=== PATIENT | female | born 1950 | race Caucasian/White ===

== ENCOUNTER → 2016-10-28 | Outpatient (CLI) | payer MEDICARE ==
--- NOTE | 2016-10-28 10:56 | PCVCIMAG ---
EXAM: BILATERAL RENAL ULTRASOUND AND BILATERAL RENAL DUPLEX INDICATION: Hypertension FINDINGS: Right kidney: Length measures 12.1 cm. No hydronephrosis or extensive renal scarring. Right renal duplex: Adequate technical quality. No sonographic evidence of renal artery stenosis. The aortic to renal artery ratio is 2.3. The renal vein is patent. Left kidney: Length measures 12.8 cm. No hydronephrosis or extensive renal scarring. Left renal duplex: Adequate technical quality. No sonographic evidence of renal artery stenosis. The aortic to renal artery ratio is 2.2. The renal vein is patent. Bladder: No obvious abnormalities. AORTA: Suprarenal aorta measures maximum diameter of 2.6 cm. There is a fusiform infrarenal aortic aneurysm. The infrarenal aorta measures maximum diameter of 2.8 x 3.6 cm. No aortic stenosis. IMPRESSION: No significant renal artery stenosis. No hydronephrosis bilaterally. 3.6 cm infrarenal abdominal aortic aneurysm. LOC:[place] [id number]
--- NOTE | 2016-10-28 12:57 | PCVCIMAG ---
APPROVED REPORT Study performed: 10/28/2016 12:21:17 EXAM: Comprehensive 2D, Doppler, and color-flow Echocardiogram Patient Location: Echo lab Status: routine BSA: 2.03 HR: 64 bpmBP: 140/80 mmHg Rhythm: NSR Other Information Study Quality: Adequate Indications CAD S/P CABG, Pulmonary Embolism 2D Dimensions LVEF(%): 53.00 (>50%) IVSd: 11.81 (7-11mm) LVDd: 46.70 mm PWd: 9.94 (7-11mm) LVDs: 33.99 (25-40mm) Left Atrium: 42.80 (27-40mm) Aortic Root: 29.83 mm LV Single Plane 4CH: 54.79 % LV Single Plane 2CH: 57.47 %Gallego's LVEF: 56.13 % Biplane EF: 56.1 % Volumes Left Atrial Volume (Systole) Single Plane 4CH: 56.09 mLSingle Plane 2CH: 54.52 mL LA ESV Index: 29.00 mL/m2 Tricuspid Valve TR Peak Jack.: 2.36 m/s TR Peak Gr.: 22.35 mmHg Left Ventricle The left ventricle is normal size. There is normal LV segmental wall motion. There is normal left ventricular wall thickness. Left ventricular systolic function is normal. The left ventricular ejection fraction is within the normal range. LVEF is 55%. The left ventricular diastolic function is normal. Right Ventricle The right ventricle is normal size. The right ventricular systolic function is normal. Normal right sided volume and pressures. Atria The left atrium size is normal. The right atrium size is normal. Aortic Valve The aortic valve is normal in structure. No aortic regurgitation is present. There is no aortic valvular stenosis. Mitral Valve The mitral valve is normal in structure. There is no mitral valve regurgitation noted. No evidence of mitral valve stenosis. Tricuspid Valve The tricuspid valve is normal in structure. Trivial tricuspid valve regurgitation noted with PAP of 29 mmHg. Pulmonic Valve The pulmonary valve is normal in structure. There is no pulmonic valvular regurgitation. Great Vessels The aortic root is normal in size. IVC is normal in size and collapses with >50% inspiration Pericardium There is no pericardial effusion. <Conclusion> The left ventricle is normal size. LVEF is 55%. The left ventricular diastolic function is normal. The right ventricle is normal size. The left atrium size is normal. There is no aortic valvular stenosis. There is no mitral valve regurgitation noted. Trivial tricuspid valve regurgitation noted with PAP of 29 mmHg. There is no pericardial effusion.
== END | disposition home or self-care (01) ==
LOC: PCVCIMAG 09:58
PROVIDERS: ATTEND Internal Medicine Cardiovascular Disease
DX: I70.1 Atherosclerosis of renal artery (principal); I45.10 Unspecified right bundle-branch block; I10 Essential (primary) hypertension; I73.9 Peripheral vascular disease, unspecified; E11.9 Type 2 diabetes mellitus without complications; I25.10 Atherosclerotic heart disease of native coronary artery without angina pectoris; I26.99 Other pulmonary embolism without acute cor pulmonale; I07.1 Rheumatic tricuspid insufficiency; I71.4 Abdominal aortic aneurysm, without rupture; F17.200 Nicotine dependence, unspecified, uncomplicated; J44.9 Chronic obstructive pulmonary disease, unspecified; Z90.49 Acquired absence of other specified parts of digestive tract; Z95.1 Presence of aortocoronary bypass graft; Z90.710 Acquired absence of both cervix and uterus; Z79.82 Long term (current) use of aspirin; Z88.0 Allergy status to penicillin; Z79.01 Long term (current) use of anticoagulants; Z88.2 Allergy status to sulfonamides
CPT/HCPCS: 76770; 80061; 93005; 93308; 93975; G0463

== ENCOUNTER → 2017-02-15 | Outpatient (CLI) | payer MEDICARE | END | disposition home or self-care (01) | LOC: PCVCCLINIC 12:43 | DX: I25.10 Atherosclerotic heart disease of native coronary artery without angina pectoris (principal); I10 Essential (primary) hypertension; I70.1 Atherosclerosis of renal artery; I77.9 Disorder of arteries and arterioles, unspecified; I73.9 Peripheral vascular disease, unspecified; E78.00 Pure hypercholesterolemia, unspecified; E11.9 Type 2 diabetes mellitus without complications; R94.31 Abnormal electrocardiogram [ECG] [EKG]; I45.10 Unspecified right bundle-branch block; Z87.891 Personal history of nicotine dependence; Z79.82 Long term (current) use of aspirin; Z79.899 Other long term (current) drug therapy | CPT/HCPCS: 80061; 93005; G0463 ==

== ENCOUNTER → 2017-09-20 | Outpatient (CLI) | payer OTHER | END | disposition home or self-care (01) | LOC: PCVCCLINIC 11:36 | PROVIDERS: ATTEND Internal Medicine Cardiovascular Disease | DX: I25.10 Atherosclerotic heart disease of native coronary artery without angina pectoris (principal); E11.9 Type 2 diabetes mellitus without complications; I45.10 Unspecified right bundle-branch block; I73.9 Peripheral vascular disease, unspecified; E78.00 Pure hypercholesterolemia, unspecified; I10 Essential (primary) hypertension; I77.9 Disorder of arteries and arterioles, unspecified; R06.02 Shortness of breath; I71.4 Abdominal aortic aneurysm, without rupture; Z88.0 Allergy status to penicillin; Z88.8 Allergy status to other drugs, medicaments and biological substances; Z95.1 Presence of aortocoronary bypass graft; Z87.891 Personal history of nicotine dependence; Z79.82 Long term (current) use of aspirin; Z79.899 Other long term (current) drug therapy | CPT/HCPCS: 93005; G0463 ==

== ENCOUNTER → 2017-10-06 | Outpatient (CLI) | payer OTHER ==
[~2017-10-06] MED LIST: REGADENOSON 0.4 MG/5 ML DISP.SYRIN. IV ONE
--- NOTE | 2017-10-06 11:17 | PCVCIMAG ---
EXAM: BILATERAL CAROTID DUPLEX INDICATION: Carotid Occlusive Disease. FINDINGS: Doppler Measurements (centimeters per second): RIGHT: Peak CCA-79, Peak ECA-211, Diastolic ICA-59, Peak ICA-187, ICA/CCA Ratio-2.4. LEFT: Peak CCA-47, Peak ECA-145, Diastolic ICA-44, Peak ICA-139, ICA/CCA Ratio-2.9. RIGHT CAROTID: The carotid bulb has moderately severe plaque. The proximal internal carotid artery shows 60-70% stenosis. The common carotid artery shows no significant stenosis. The external carotid artery shows 60% stenosis. LEFT CAROTID: The carotid bulb has mild plaque. The proximal internal carotid artery shows <40% stenosis. The common carotid artery shows no significant stenosis. The external carotid artery shows 40% stenosis. Antegrade flow in both vertebral arteries. IMPRESSION: 60-70% stenosis of the right internal carotid artery with moderately severe plaque. <40% stenosis of the left internal carotid artery with mild plaque. No change since March 2016 study. LOC:[id number]
--- NOTE | 2017-10-06 12:16 | PCVCIMAG ---
EXAM: AORTOILIAC DUPLEX INDICATION: Peripheral arterial disease FINDINGS: AORTA: Suprarenal aorta measures maximum diameter of 2.9 cm. There is a fusiform infrarenal aortic aneurysm. The infrarenal aorta measures maximum diameter of 3.0 x 3.6 cm. No aortic stenosis. RIGHT COMMON ILIAC ARTERY: Maximum diameter is 1.5 cm. No significant stenosis. RIGHT EXTERNAL ILIAC ARTERY: No significant stenosis. LEFT COMMON ILIAC ARTERY: Maximum diameter is 1.6 cm. No significant stenosis. LEFT EXTERNAL ILIAC ARTERY: No significant stenosis. IMPRESSION: 3.6 cm infrarenal abdominal aortic aneurysm is unchanged since October 2016 study. LOC:[id number]
--- NOTE | 2017-10-06 12:28 | PCVCIMAG ---
APPROVED REPORT Study performed: 10/06/2017 08:08:36 EXAM: Comprehensive 2D, Doppler, and color-flow Echocardiogram Patient Location: Echo lab Status: routine BSA: 2.05 HR: 88 bpmBP: 154/86 mmHg Rhythm: RBBB Other Information Study Quality: Adequate Indications Diabetes Dyspnea CAD 2D Dimensions LVEF(%): 53.70 (>50%) IVSd: 10.48 (7-11mm) LVDd: 47.60 mm PWd: 11.47 (7-11mm) LVDs: 34.41 (25-40mm) Left Atrium: 42.18 (27-40mm) Aortic Root: 28.00 mm LV Single Plane 4CH: 58.25 % LV Single Plane 2CH: 61.10 %Gallego's LVEF: 59.67 % Biplane EF: 60.2 % Volumes Left Atrial Volume (Systole) Single Plane 4CH: 66.23 mLSingle Plane 2CH: 46.47 mL LA ESV Index: 28.00 mL/m2 Aortic Valve AoV Peak Jack.: 1.30 m/s AO Peak Gr.: 6.80 mmHgLVOT Max P.76 mmHg LVOT Max V: 0.83 m/s Mitral Valve E/A Ratio: 0.7 MV Decel. Time: 240.71 ms MV E Max Jack.: 0.85 m/s MV A Jack.: 1.18 m/s IVRT: 83.04 ms Pulmonary Valve PV Peak Jack.: 0.88 m/sPV Peak Gr.: 3.09 mmHg Pulmonary Vein P Vein S: 0.55 m/sP Vein A: 0.30 m/s P Vein D: 0.62 m/sP Vein A Dur.: 134.9 msec P Vein S/D Ratio: 0.89 Tricuspid Valve TR Peak Jack.: 2.73 m/s TR Peak Gr.: 29.78 mmHg TV Vmax: 0.51 m/s Left Ventricle The left ventricle is normal size. There is normal LV segmental wall motion. There is normal left ventricular wall thickness. Left ventricular systolic function is normal. The left ventricular ejection fraction is within the normal range. LVEF is 55-60%. Grade I - abnormal relaxation pattern. Right Ventricle The right ventricle is normal size. The right ventricular systolic function is normal. Atria The left atrium size is normal. The right atrium size is normal. Aortic Valve The aortic valve is normal in structure. No aortic regurgitation is present. There is no aortic valvular stenosis. Mitral Valve Mild posterior mitral annular calcification. There is trace mitral valve regurgitation noted. No evidence of mitral valve stenosis. Tricuspid Valve The tricuspid valve is normal in structure. Mild tricuspid regurgitation with PAP of 37 mmHg. Pulmonic Valve The pulmonary valve is normal in structure. There is no pulmonic valvular regurgitation. Great Vessels The aortic root is normal in size. IVC is normal in size and collapses with >50% inspiration Pericardium There is no pericardial effusion. There is no pleural effusion. <Conclusion> The left ventricle is normal size. LVEF is 55-60%. Grade I - abnormal relaxation pattern. The right ventricle is normal size. The left atrium size is normal. The aortic valve is normal in structure. There is trace mitral valve regurgitation noted. Mild tricuspid regurgitation with PAP of 37 mmHg. The aortic root is normal in size. There is no pericardial effusion.
--- NOTE | 2017-10-06 18:12 | PCVCIMAG ---
APPROVED REPORT Imaging Protocol: Rest Tc-99m/Stress Tc-99m 1 day Study performed: 10/06/2017 11:43:18 Indication: CAD, RBBB, Pre OP, Dyspnea Patient Location: Out-Patient Stress Nurse: Karla Song RN SC Tech:Kenneth ShepherdYUMIKO Ht: 5 ft 4 in Wt: 214 lbs BSA: 2.01 m2 HR: 82 bpm BP: 147/72 mmHg BMI: 36.7 Rhythm: SR, RBBB Medical History Medical History: Age, Hyperlipidemia, HTN, PVD, CAD, Former Smoker, DM Medications: Aspirin, furosemide, imdur (held 24h), losartan, nitro sl (held > 24h), omeprazole, xarelto, simvastatin, januvia, chantix Previous Cardiac Procedures: CABG Pretest Chest Pain Characteristics: No chest pain Physical Disabilities: R Knee and hip Resting Data Rest SPECT myocardial perfusion imaging was performed in supine position 45 minutes following the intravenous injection of 11.1 mCi of Tc-99m Sestamibi. Time of rest injection: 1105 Date: 10/06/2017 Administration Route: IV Administration Site: Right Hand Pharmacologic Stress Pharmacologic stress test was performed by injecting Regadenoson 0.4 mg IV push over 10-15 seconds immediately followed by the intravenous injection of 36 mCi of Tc-99m Sestamibi. Time of stress injection: 1205 Date: 10/06/2017 Administration Route: IV Administration Site: Right Hand Gated Stress SPECT was performed 45 minutes after stress injection. The images were gated to evaluate regional wall motion and calculate left ventricular ejection fraction. Comments Prior 10/2014 Perfusion Imaging: No evidence of stress induced ischemia or prior myocardial infarction. Normal left ventricular size and function with no regional wall motion abnormalities. No relevant prior studies available currently for comparison. Clinical findings: Nondiagnostic. EKG findings: Nonischemic. Stress Test Details Stress Test: Pharmacologic stress testing performed using 0.4 mg of regadenoson per 5 mL given IV over 10 seconds. Reason for pharmacologic stress test: Knee and Hip issues. HRMax Heart Rate (APMHR): 154 bpm Resting HR: 82 bpmTarget HR (85% APMHR): 130 bpm Max HR Achieved: 98 bpm % of APMHR: 63 Recovery HR: 91 bpm BP Resting BP: 147/72 mmHg Recovery BP: 144/64 mmHg ECG Resting ECG: SR with R BBB Stress ECG: SR with R BBB, Sinus Rhythm, nonspecific ST-T abnormalities Arrhythmia: PVC's isolated Recovery ECG: SR with R BBB Clinical Reason for Termination: Completed protocol Stress Symptoms: Abdominal Discomfort, Dyspnea, Jaw Pain Symptoms resolved with caffeine. Stress ECG Conclusion ECG: Non-ischemic Study Quality Study: Good Study Data Post stress, the left ventricular ejection was 76%.. SSS: 0 SRS: 2 SDS: 0 TID = 1.04. Perfusion No evidence of stress induced ischemia or prior myocardial infarction. Wall Motion Normal left ventricular size and function with no regional wall motion abnormalities. Nuclear Conclusion No evidence of stress induced ischemia or prior myocardial infarction. Normal left ventricular size and function with no regional wall motion abnormalities. Post stress, the left ventricular ejection was 76%. No change since prior study dated October 2014. Interpreted by: Peter West MD Electronically Approved: 10/06/2017 14:23:03 <Conclusion> ECG: Non-ischemic
== END | disposition home or self-care (01) ==
LOC: PCVCIMAG 11:08
PROVIDERS: ATTEND Internal Medicine Cardiovascular Disease
DX: I65.23 Occlusion and stenosis of bilateral carotid arteries (principal); I73.9 Peripheral vascular disease, unspecified; I71.4 Abdominal aortic aneurysm, without rupture; I25.10 Atherosclerotic heart disease of native coronary artery without angina pectoris; I10 Essential (primary) hypertension; R06.09 Other forms of dyspnea; E11.9 Type 2 diabetes mellitus without complications; I45.10 Unspecified right bundle-branch block
CPT/HCPCS: 78452; 93017; 93306; 93880; 93978; A9500; J2785

== ENCOUNTER → 2018-04-19 | Outpatient (CLI) | payer MEDICARE | END | disposition home or self-care (01) | LOC: PCVCCLINIC 13:30 | PROVIDERS: ATTEND Internal Medicine Cardiovascular Disease | DX: I25.810 Atherosclerosis of coronary artery bypass graft(s) without angina pectoris (principal); E11.9 Type 2 diabetes mellitus without complications; I45.10 Unspecified right bundle-branch block; E78.00 Pure hypercholesterolemia, unspecified; I73.9 Peripheral vascular disease, unspecified; I65.23 Occlusion and stenosis of bilateral carotid arteries; D64.9 Anemia, unspecified; J44.9 Chronic obstructive pulmonary disease, unspecified; Z86.711 Personal history of pulmonary embolism; Z87.891 Personal history of nicotine dependence | CPT/HCPCS: 36415; 80061; 93005; G0463 ==

== ENCOUNTER → 2018-11-01 | Outpatient (CLI) | payer MEDICARE ==
--- NOTE | 2018-11-01 14:45 | PCVCIMAG ---
EXAM: BILATERAL CAROTID DUPLEX INDICATION: Carotid Occlusive Disease. Previous left carotid endarterectomy. FINDINGS: Doppler Measurements (centimeters per second): RIGHT: Peak CCA-50, Peak ECA-179, Diastolic ICA-44, Peak ICA-129, ICA/CCA Ratio-2.6. LEFT: Peak CCA-76, Peak ECA-125, Diastolic ICA-27, Peak ICA-88, ICA/CCA Ratio-1.2. RIGHT CAROTID: The carotid bulb has moderate plaque. The proximal internal carotid artery shows 40-50% stenosis. The common carotid artery shows no significant stenosis. The external carotid artery shows 60% stenosis. LEFT CAROTID: The carotid bulb has no significant plaque. The proximal internal carotid artery shows no significant stenosis. The common carotid artery shows no significant stenosis. The external carotid artery shows no significant stenosis. Antegrade flow in both vertebral arteries. IMPRESSION: <40% stenosis of the right internal carotid artery with moderate plaque. No significant stenosis of the left internal carotid artery with no significant plaque. LOC:[place] [id number]
== END | disposition home or self-care (01) ==
LOC: PCVCIMAG 13:48
PROVIDERS: ATTEND Internal Medicine Cardiovascular Disease
DX: I65.21 Occlusion and stenosis of right carotid artery (principal); Z88.0 Allergy status to penicillin; Z88.2 Allergy status to sulfonamides
CPT/HCPCS: 36415; 80061; 93005; 93880; G0463